=== PATIENT | female | born 1950 | race African-American/Black ===

== ENCOUNTER 2016-11-07 09:08 | Emergency (ER) | payer MEDICARE, OTHER ==
--- NOTE | ~2016-11-07 | EKG ---
PATIENT: MICK MARSH UNIT #: [id number] Ventricular Rate: 75 BPM Atrial Rate: 75 BPM P-R Interval: 140 ms QRS Duration: 78 ms Q-T Interval: 394 ms QTC Calculation(Bezet): 439 ms P [place]: 59 degrees Calculated R [place]: 22 degrees Calculated T [place]: -7 degrees Diagnosis Line: Normal sinus rhythm Diagnosis Line: Nonspecific T wave abnormality Diagnosis Line: Abnormal ECG Diagnosis Line: When compared with ECG of 05-JUL-2015 15:48, Diagnosis Line: Nonspecific T wave abnormality, improved in Diagnosis Line: Lateral leads Diagnosis Line: Confirmed by SHEYLA BOWMAN MD ([id number]) on Diagnosis Line: 11/08/2016 1:16:46 PM INTERPRETING MD: SHIRA
--- NOTE | ~2016-11-07 | CR72 ---
[facility] A Service of [facility] RADIOLOGY TEXT RESULTS PATIENT: MICK MARSH LOCATION: [facility] [employer] [facility] : 48 UNIT #: [id number] AGE: [address]: Vlad Mata MD SEX: F ORDER DR: [id number] [facility] [address] [place], [place] [address] [id number] E MR#: [id number] #: [id number] NAME: MICK MARSH. : 1950 SEX: F STUDY DATE/TIME: 11/07/2016 0943 UNIT: OSIEL ROOM: STUDY DESCRIPTION: CR Chest Single View Portable Attending Physician: Vlad Mata M.D. Ordering Physician: Vlad Mata M.D. Primary Care Physician: Royer Hein M.D. MEDICAL IMAGING REPORT This report is preliminary unless electronic signature is present EXAM Chest, portable, 11/07/2016, 0943 hours. CLINICAL HISTORY 66-year-old woman with a 1-day history of anterior chest pain and shortness of air. History of hypertension, diabetes, CHF, and prior CVA. COMPARISON 10/20/2016 FINDINGS Portable upright chest demonstrates low lung volumes. There is stable cardiomegaly and mildly tortuous aorta. There is pulmonary venous distension without definite edema. No effusions. IMPRESSION Low lung volume film with stable cardiomegaly and minimally tortuous aorta. There is pulmonary venous distension without definite edema or pneumonia. No definite effusions. Film is limited by low lung volumes. Dictated by... Bebe Flor M.D. THIS IS AN ELECTRONICALLY VERIFIED REPORT Bebe Flor M.D. at 11/07/2016 2:29 PM ZAINAB/yinka TD: 11/07/2016 11:46 JOB #: [id number] MEDICAL IMAGING REPORT [facility] A Service of [facility] RADIOLOGY TEXT RESULTS PATIENT: MICK MARSH LOCATION: [facility] #: [id number] : 48 UNIT #: [id number] AGE: [address]: Vlad Mata MD SEX: F ORDER DR: Page 1 of 1 COPY
--- NOTE | ~2016-11-07 | HP ---
Unit #: [id number] #: [id number] Patient: MICK MARSH [id number] [address] [place], [place] [address] [id number] E MR#: [id number] NAME: MICK MARSH. ROOM: Age: 66 Sex: F Admission Date: 11/07/2016 : 1950 Attending Physician: Vlad Mata M.D. Primary Care Physician: Royer Hein M.D. HISTORY AND PHYSICAL HISTORY OF PRESENT ILLNESS This is a 66-year-old female who is known to our group. She has a history of hypertension, hyperlipidemia and diastolic heart rate failure with preserved ejection fraction of 55%-60%. She had a cardiac catheterization in 11/2015 at [facility], where she had LAD stenosis of 20%-25% that has not changed from previous cardiac catheterization in 2013. Her main arteries are normal. She was discharged from [facility] on 10/25/2016, when she was admitted with c-diff colitis. The patient comes to the emergency room with the complaint of sharp midsternal chest pain that she describes as pins and needles. It radiates into her left arm. Her symptoms started at approximately 5 p.m. while she was talking with friends at the [facility], where she is currently living. She is homeless. She went to lay down and the pain persisted. The duration of her chest pain was intermittent, in 5 minute intervals. She also reports diarrhea for the past four months. The nurse advised her to come to the emergency room for evaluation. Her troponin is negative times two sets. Electrocardiogram has no acute ischemic changes. There are no alleviating or aggravating factors. PAST MEDICAL HISTORY 1. Two-dimensional echocardiogram 10/21/2016 at [facility] which shows an ejection fraction of 55%-60%, with grade 3 diastolic dysfunction. Mild aortic regurgitation. Moderate right atrial enlargement. 2. Cardiac catheterization 11/22/2014 at [facility] showed left main, right coronary artery and circumflex artery normal. LAD had 20%-25% stenosis that was found on cardiac catheterization in 2013. Ejection fraction of 55%. 3. Hypertension. 4. Hyperlipidemia. 5. Chronic obstructive pulmonary disease/bronchitis on home oxygen. 6. Diabetes mellitus type 2. 7. Diastolic dysfunction. 8. Cerebrovascular accident. 9. Fibromyalgia. 10. Seizure disorder. 11. Gastroesophageal reflux disease. 12. Pulmonary embolism, status post IVC filter. 13. Nonsmoker. PAST SURGICAL HISTORY 1. Tonsillectomy. 2. Cholecystectomy. 3. Left foot surgery times four secondary to fracture. Unit #: [id number] #: [id number] Patient: MICK MARSH 4. Bilateral carpal tunnel release. 5. Left finger surgery. 6. Right knee surgery. 7. Femoral popliteal bypass. 8. Eye surgery. SOCIAL HISTORY The patient is homeless and currently lives in the [facility]. She said she has never smoked. She denies a history of illicit drugs or alcohol use. FAMILY HISTORY Mother from abdominal aortic aneurysm, but on coronary artery disease to her knowledge. ALLERGIES IV contrast, iodine, NSAIDs, penicillin, antihistamines, piperidine, codeine, zinc acetate, Benadryl, alkylamine, ethylenediamine and pyrazoles. CURRENT MEDICATIONS 1. Advair. 2. Combivent. 3. Carvedilol. 4. Vitamin D. 5. Gabapentin. 6. Imdur. 7. Keflex. 8. Lantus. 9. Keppra. 10. Lisinopril. 11. Lyrica. 12. NovoLog. 13. Omeprazole. 14. ProAir. 15. Simvastatin. 16. Levothyroxine. 17. Topamax. 18. Tramadol. REVIEW OF SYSTEMS Ten point review of systems negative except details stated in the history of present illness. PHYSICAL EXAMINATION GENERAL: This is a 66-year-old female who is in no acute distress. VITALS: Blood pressure 170/89, heart rate 57, temperature 98.4. NECK: Trachea midline. No thyromegaly or lymphadenopathy. No jugular venous distension. LUNGS: Clear without rales, rhonchi or wheezes. CHEST: Chest wall is tender at the costochondrital junction. HEART: S1 and S2. Heart sounds are normal. No murmurs, rubs or clicks. Regular rate and rhythm. ABDOMEN: Soft and nontender with bowel sounds present. EXTREMITIES: Right lower extremity without leg edema. Left leg has boot applied and is not accessible. NEUROLOGIC: Awake, alert and oriented. There is no focal weakness. Unit #: [id number] #: [id number] Patient: MICK MARSH DIAGNOSTIC STUDIES LABORATORY: Hemoglobin 9.8, hematocrit 31.5, platelets 258, white blood cell count 3.5, sodium 141, potassium 3.5, BUN 7, creatinine 0.8, glucose 167, troponin 0.05 times 2. CARDIOVASCULAR: Electrocardiogram normal sinus rhythm, rate of 75 beats per minute, with nonspecific ST wave abnormalities. ASSESSMENT 1. Costochondritis. 2. Nonobstructive coronary artery disease per cardiac catheterization 08/2015, with LAD stenosis of 20%-25%. 3. Chronic diastolic heart failure with preserved ejection fraction of 55%-60%. 4. Hypertension. 5. Hyperlipidemia. 6. Chronic obstructive pulmonary disease on home oxygen. 7. Diabetes mellitus type 2. PLAN Cardiology was asked to see the patient in the emergency room for evaluation of chest pain. The patient has tenderness in the costochondrital junction. This is consistent with costochondritis. Troponin is negative with no acute ischemic changes. She had nonobstructive disease per cardiac catheterization in 2015 that was unchanged. Will treat the patient with Depo-Medrol. She can be discharged home today to follow up with her primary care physician in six to eight weeks. Continue her current medication regimen as previous. Dictated by Judah Santiago A.P.R.N. for Chester De León TD: 11/08/2016 09:53 JOB #: [id number] CC: [facility] HISTORY AND PHYSICAL Page 1 of 1 X Judah Santiago APRN HISTORY AND PHYSICAL
[~2016-11-07 09:08] MED LIST: ACETAMINOPHEN650 M1 PO; ADVAIR 250-501 EAC1 IH; AGGRENOX PO; AGGRENOX1 CAP PO; ALPRAZOLAM PO; ALPRAZOLAM0.5 MG PO; ARTIFICIAL TEAR15 M3; ASPIRIN81 M2 PO; ATIVAN0.5 M1 PO; BENTYL10 MG PO; BENZONATATE PO; BEPREVE10 ML OP; CARDIZEM SR PO; CARVEDILOL6.25 MG PO; CATAPRES0.1 MG PO; CLONIDINE HCL0.1 MG PO; COMBIVENT INH14.7 G1 IH; COMBIVENT U/D3 M2 INH; COREG3.125 MG PO; COREG6.25 MG PO; COUMADIN PO; DARVOCET-N 1001 TAB PO; DICYCLOMINE HCL10 MG PO; EFFEXOR PO; FLEXERIL PO; FOSINOPRIL PO; FOSINOPRIL SODI20 MG PO; FOSINOPRIL SODI40 M1 PO; FUROSEMIDE40 MG PO; GABAPENTIN300 M2 PO; GLUCOPHAGE500 M1 PO; HCTZ PO; HUMALOG100 U/M2 SQ; HUMALOG100 U/ML SUBQ; HUMIBID-LA600 MG PO; HYDRALAZINE HCL50 MG PO; HYDROCHLOROTHIA25 MG PO; HYDROCODON-ACE1 EAC7 PO; HYDROCODONE-APA1 T30 PO; HYDROCODONE-APA1 T57 PO; IMDUR PO; IMDUR-ER60 M1 PO; IPRAT-ALBUT 0.5-3 ML IH; ISOSORBIDE MON120 M1 PO; KCL PO; KEPPRA1000 MG PO; KEPPRA500 M2 PO; LANTUS100 U/ML; LANTUS100 U/ML SUBQ; LANTUS100 UNITS/ SUBQ; LASIX PO; LEVAQUIN PO; LEVAQUIN750 MG PO; LEVOTHYROXINE75 MCG PO; LIPITOR PO; LISINOPRIL20 MG PO; LOMOTIL TABLET1 TAB PO; LOVENOX100 MG/ML INJ; LYRICA75 MG PO; METFORMIN PO; MEVACOR40 MG PO; MONOPRIL10 MG PO; MONOPRIL40 MG PO; MUCINEX D ER T1 EAC1 PO; NAPROXEN PO; NEXIUM PO; NITROGYLCERIN SUBLINGUAL; NORCO 5/325 TAB1 TAB PO; NORCO 7.5-3251 EACH PO; NORVASC PO; NOVOLOG MI100 UNIT/1; NOVOLOG100 U/ML SUBQ; PAIN RELIEF325 MG PO; PAIN RELIEF500 MG PO; PHENERGAN25 MG PO; PLAVIX PO; PLAVIX300 MG PO; POTASSIUM CHLOR8 ME1 PO; PREDNISONE PO; PREDNISONE10 MG PO; PRILOSEC20 M1 PO; PRILOSEC20 MG PO; PRILOSEC40 MG PO; PROTONIX PO; Q-PAP325 MG PO; REFRESH5 ML OP; REGLAN PO; ROBITUSSIN A-C S5 ML PO; SYMBICORT INH; SYNTHROID PO; SYNTHROID0.05 MG PO; SYNTHROID0.1 MG PO; SYNTHROID75 MCG PO; TIZANIDINE HCL4 M1 PO; TOPAMAX PO; TOPAMAX200 MG; TOPAMAX200 MG PO; TOPAMAX25 MG PO; TRICOR PO; VALIUM10 MG PO; VICODIN PO; VIT B-12 PO; WELCHOL625 MG PO; ZANAFLEX PO; ZANAFLEX2 M1 PO; ZANAFLEX4 M1 PO; ZANTAC PO; ZITHROMAX PO; ZOCOR20 MG PO; [UNRECOGNIZED DRUG - OTHER] PO
[2016-11-07 10:13] LABS: BASOPHIL% 0.2 % (0-2.5); EOSINOPHIL# 0.2 X10e3 (0-0.7); EOSINOPHIL% 5.4 % (0.0-7.0); HEMATOCRIT 31.5 % (35.0-45.0); HEMOGLOBIN 9.8 gm/dL (12.0-16.0); LYMPHOCYTE# 1.2 X10e3 (1.0-3.5); LYMPHOCYTE% 34.2 % (17.0-45.0); MEAN CELL VOLUME 97.6 FL (83-96); MEAN CORPUSCULAR HEMOGLOBIN 30.5 PG (28-34); MEAN CORPUSCULAR HGB CONC 31.2 g/dL (30-36); MEAN PLATELET VOLUME 8.8 FL (6.5-11.5); MONOCYTE# 0.6 X10e3 (0-1.0); MONOCYTE% 16.2 % (3.0-12.0); NEUTROPHIL# 1.6 X10e3 (1.5-7.1); PLATELET COUNT 258 X10e3 (140-420); RED BLOOD COUNT 3.23 X10e (3.90-5.30); RED CELL DISTRIBUTION WIDTH 18.4 % (11.0-15.5); WHITE BLOOD COUNT 3.5 X10e3 (4.0-10.5)
[2016-11-07 10:17] LABS: DIFF IND NO
[2016-11-07 10:20] LABS: POC - TROPONIN <0.05 ng/mL (<=0.05)
[2016-11-07 10:25] LABS: PARTIAL THROMBOPLASTIN TIME 20.9 SECONDS (23.5-31.3); PROTHROMBIN TIME (PATIENT) 10.7 SECONDS (9.6-11.5)
[2016-11-07 10:37] LABS: BILIRUBIN, DIRECT 0.1 mg/dL (0.0-0.2); BILIRUBIN,INDIRECT 0.6 mg/dL (0.0-0.9); BILIRUBIN,TOTAL 0.7 mg/dL (0.2-2.0); BUN/CREATININE RATIO 7.77; CALCIUM SERUM 8.5 mg/dL (8.4-10.2); CREATININE SERUM 0.9 mg/dL (0.6-1.4); GLOM FILT RATE Estimated 76.7 mL/min (>60); POTASSIUM 3.5 mmol/L (3.5-5.1); PROTEIN TOTAL SERUM 7.1 g/dL (6.0-8.3)
[2016-11-07 11:51] LABS: POC - CKMB 1.1 ng/mL (0.0-7.9); POC - TROPONIN <0.05 ng/mL (<=0.05)
== END 2016-11-07 14:25 | disposition home or self-care (01) ==
LOC: CED 09:08
PROVIDERS: Emergency Medicine
DX: M94.0 Chondrocostal junction syndrome [Tietze] (principal); I10 Essential (primary) hypertension; E11.9 Type 2 diabetes mellitus without complications; Z86.73 Personal history of transient ischemic attack (TIA), and cerebral infarction without residual deficits; Z90.49 Acquired absence of other specified parts of digestive tract; Z79.4 Long term (current) use of insulin; Z91.041 Radiographic dye allergy status; Z88.8 Allergy status to other drugs, medicaments and biological substances; Z88.0 Allergy status to penicillin; Z88.5 Allergy status to narcotic agent
CPT/HCPCS: 36415; 71010; 80048; 80076; 82553; 84484; 85025; 85610; 85730; 93005; 96372; 99284; J1040

== ENCOUNTER 2017-01-05 12:33 | Emergency (ER) | payer MEDICARE, OTHER ==
[~2017-01-05] VITALS: Ht 175.3 cm; Wt 95.2 kg
--- NOTE | ~2017-01-05 | EKG ---
PATIENT: MICK MARSH UNIT #: [id number] Ventricular Rate: 72 BPM Atrial Rate: 72 BPM P-R Interval: 148 ms QRS Duration: 78 ms Q-T Interval: 422 ms QTC Calculation(Bezet): 462 ms P [place]: 77 degrees Calculated R [place]: 11 degrees Calculated T [place]: -48 degrees Diagnosis Line: Normal sinus rhythm Diagnosis Line: Nonspecific T wave abnormality Diagnosis Line: Abnormal ECG Diagnosis Line: When compared with ECG of 07-NOV-2016 09:14, Diagnosis Line: Nonspecific T wave abnormality, worse in Anterior Diagnosis Line: leads Diagnosis Line: Confirmed by ROBERT GILL MD ([id number]) on Diagnosis Line: 01/07/2017 8:09:52 PM INTERPRETING : HAROON
--- NOTE | ~2017-01-05 | CR72 ---
[facility] A Service of [facility] RADIOLOGY TEXT RESULTS PATIENT: MICK MARSH LOCATION: [facility] : 48 UNIT #: [id number] AGE: [address]: Yonis Abebe MD SEX: F ORDER DR: [id number] [facility] [address] [place], [place] [address] [id number] MR#: [id number] Acc #: [id number] NAME: MICK MARSH. : 1950 SEX: F STUDY DATE/TIME: 01/05/2017 13:13 UNIT: CFTX ROOM: STUDY DESCRIPTION: CR Chest Single View Portable Attending Physician: Yonis Abebe M.D. Ordering Physician: Yonis Abebe M.D. Primary Care Physician: Royer Hein M.D. MEDICAL IMAGING REPORT This report is preliminary unless electronic signature is present EXAM Portable chest 01/05/2017 NOTE The initial report did not go through due to technical difficulties with the electronic page makeup system operator system. HISTORY History of shortness of air with chest pain, onset today. COMPARISON 11/07/2016. FINDINGS AP portable view of the chest demonstrates low lung volumes. Cardiomegaly with prominence of pulmonary vascularity could represent early CHF. Small right perihilar, right infrahilar parenchymal opacity could represent focal infiltrate or pneumonia. No sizeable effusions. Mediastinum unremarkable. No invasive tubes or lines identified. No pneumothorax. Dictated by... Sigrid Medley M.D. THIS IS AN ELECTRONICALLY VERIFIED REPORT Sigrid Medley M.D. at 01/10/2017 8:06 AM MOHINI/ad TD: 01/08/2017 21:37 JOB #: [id number] MEDICAL IMAGING REPORT [facility] A Service [facility][1] RADIOLOGY TEXT RESULTS PATIENT: MICK MARSH LOCATION: [place] : 48 UNIT #: [id number] AGE: [address]: Yonis Abebe MD SEX: F ORDER DR: Page 1 of 1 COPY
[2017-01-05 13:56] LABS: POC - CKMB 3.4 ng/mL (0.0-7.9); POC - TROPONIN <0.05 ng/mL (<=0.05)
[2017-01-05 14:00] LABS: BASOPHIL% 1.2 % (0-2.5); EOSINOPHIL# 0.3 X10e3 (0-0.7); EOSINOPHIL% 7.1 % (0.0-7.0); HEMATOCRIT 34.9 % (35.0-45.0); LYMPHOCYTE# 1.6 X10e3 (1.0-3.5); LYMPHOCYTE% 41.1 % (17.0-45.0); MEAN CELL VOLUME 98.9 FL (83-96); MEAN CORPUSCULAR HEMOGLOBIN 31.2 PG (28-34); MEAN CORPUSCULAR HGB CONC 31.6 g/dL (30-36); MEAN PLATELET VOLUME 10.8 FL (6.5-11.5); MONOCYTE# 0.4 X10e3 (0-1.0); MONOCYTE% 9.6 % (3.0-12.0); NEUTROPHIL# 1.6 X10e3 (1.5-7.1); PLATELET COUNT 164 X10e3 (140-420); RED BLOOD COUNT 3.53 X10e (3.90-5.30); RED CELL DISTRIBUTION WIDTH 16.4 % (11.0-15.5); WHITE BLOOD COUNT 3.8 X10e3 (4.0-10.5)
[2017-01-05 14:01] LABS: DIFF IND NO
[2017-01-05 14:22] LABS: ALBUMIN SERUM 3.4 g/dL (3.5-5.0); BILIRUBIN, DIRECT 0.2 mg/dL (0.0-0.2); BILIRUBIN,INDIRECT 0.9 mg/dL (0.0-0.9); BILIRUBIN,TOTAL 1.1 mg/dL (0.2-2.0); BUN/CREATININE RATIO 12.5; CALCIUM SERUM 9.1 mg/dL (8.4-10.2); CREATININE SERUM 0.8 mg/dL (0.6-1.4); GLOM FILT RATE Estimated 88.5 mL/min (>60); POTASSIUM 4.1 mmol/L (3.5-5.1); PROTEIN TOTAL SERUM 8.2 g/dL (6.0-8.3)
[2017-01-05 15:14] LABS: POC - CKMB <1.0 ng/mL (0.0-7.9); POC - TROPONIN <0.05 ng/mL (<=0.05)
== END 2017-01-05 19:00 | disposition home or self-care (01) ==
LOC: CED 12:33 → CFTX 13:56 → CED 19:00
PROVIDERS: Emergency Medicine
DX: I11.0 Hypertensive heart disease with heart failure (principal); I50.9 Heart failure, unspecified; R60.0 Localized edema; E78.5 Hyperlipidemia, unspecified; J44.9 Chronic obstructive pulmonary disease, unspecified; Z86.73 Personal history of transient ischemic attack (TIA), and cerebral infarction without residual deficits; Z88.5 Allergy status to narcotic agent; Z88.8 Allergy status to other drugs, medicaments and biological substances
CPT/HCPCS: 36415; 71010; 80048; 80076; 82553; 83880; 84484; 85025; 93005; 96374; 99285; J1940

== ENCOUNTER 2017-01-30 00:52 | Emergency (ER) | payer MEDICARE, OTHER | END 2017-01-30 03:20 | disposition home or self-care (01) | LOC: CED 00:52 | DX: R04.0 Epistaxis (principal); I11.0 Hypertensive heart disease with heart failure; I50.9 Heart failure, unspecified; Z88.5 Allergy status to narcotic agent; Z88.8 Allergy status to other drugs, medicaments and biological substances; Z91.041 Radiographic dye allergy status | CPT/HCPCS: 30901; 99283 ==